=== PATIENT | female | born 2000 | race Caucasian/White ===

== ENCOUNTER 2024-02-08 11:10 | Emergency (ER) | payer OTHER ==
--- NOTE | 2024-02-08 12:10 | ED Physician Documentation ---
History of Present Illness - Stated complaint Stated Complaint: N/V,BATISTA,ABD CRAMPING - Chief complaint Chief Complaint: Abd Pain - Additonal information Additional information: 23-year-old female with history of vertigo, migraines headaches currently 34 weeks presents emergency department for nausea vomiting diarrhea. Patient started experiencing flulike symptoms yesterday today she woke feeling slightly better she took her iron pill went to the bathroom to void and started feeling what she describes as vertigo she says it feels like her other vertigo episodes she has had in the past she tried to lay on her right side for little bit to help with vertigo symptoms and felt a sudden urge for diarrhea. She said that she had nausea vomiting diarrhea for about 5 minutes and was very dizzy with abdominal cramping since then. She also complains of new worsening headache no known recent fevers or chills no dysuria or urinary urgency. PD PAST MEDICAL HISTORY - Past Medical History Past Medical History: Yes Neuro: Headaches, Migraines Other Past Medical History: vertigo - Past Surgical History Past Surgical History: No - Present Medications Home Medications: Ambulatory Orders Medication Instructions Recorded Confirmed Ferrous Sulfate [Feosol] 325 mg PO DAILY 02/08/24 02/08/24 Pnv No.95/Ferrous Fum/Folic AC 1 tab PO DAILY 02/08/24 02/08/24 [ Tablet] - Allergies Allergies/Adverse Reactions: Allergies Allergy/AdvReac Type Severity Reaction Status Date / Time No Known Drug Allergies Allergy Verified 02/08/24 11:30 - Social History Does the pt smoke?: No Smoking Status: Never smoker Does the pt drink ETOH?: No Does the pt have substance abuse?: No - Immunizations Immunizations are current?: Yes - POLST Patient has POLST: No PD ED PE NORMAL - Vitals Vital signs reviewed: Yes - General General: Alert and oriented X 3, No acute distress, Well developed/nourished - HEENT HEENT: Atraumatic, PERRL, EOMI, Moist mucous membranes - Cardiac Cardiac: RRR - Respiratory Respiratory: No respiratory distress, Clear bilaterally - Abdomen Abdomen: Normal bowel sounds, Soft, Non tender, Other (34 wks ) - Back Back: No CVA TTP - Derm Derm: Normal color, No rash - Extremities Extremities: No deformity, No edema - Neuro Neuro: Alert and oriented X 3, 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, No motor deficit, No sensory deficit, Normal speech Eye Opening: Spontaneous Motor: Obeys Commands Verbal: Oriented GCS Score: 15 - Psych Psych: Normal mood, Normal affect Results - Vitals Vitals: Vital Signs - 24 hr 02/08/24 02/08/24 02/08/24 11:25 13:06 14:47 Temperature 36.5 C Heart Rate 72 75 87 Respiratory 16 16 18 Rate Blood Pressure 97/65 113/73 103/67 O2 Saturation 99 100 98 Oxygen O2 Source Room air - Labs Labs: Laboratory Tests 02/08/24 02/08/24 02/08/24 12:36 12:36 12:39 WBC 8.7 RBC 3.47 L Hgb 11.6 L Hct 34.1 L MCV 98.3 MCH 33.4 H MCHC 34.0 RDW 12.8 Plt Count 144 MPV 10.6 Neut # (Auto) 6.6 Lymph # (Auto) 1.6 [place] # (Auto) 0.5 Eos # (Auto) 0.1 Baso # (Auto) 0.0 Absolute Nucleated RBC 0.00 Nucleated RBC % 0.0 Sodium Potassium Chloride Carbon Dioxide Anion Gap BUN Creatinine Estimated GFR (MDRD) Glucose Calcium Magnesium Total Bilirubin AST ALT Alkaline Phosphatase Total Protein Albumin Globulin Albumin/Globulin Ratio Lipase Urine Color YELLOW Urine Clarity CLOUDY Urine pH 7.5 Ur Specific [place] 1.015 Urine Protein NEGATIVE Urine Glucose (UA) NEGATIVE Urine Ketones NEGATIVE Urine Occult Blood NEGATIVE Urine Nitrite NEGATIVE Urine Bilirubin NEGATIVE Urine Urobilinogen 0.2 (NORMAL) Ur Leukocyte Esterase NEGATIVE Urine RBC 0-5 Urine WBC 0-3 Ur Squamous Epith Cells RARE Squamous Amorphous Sediment Moderate Urine Bacteria Moderate H Ur Microscopic Review INDICATED Urine Culture Comments NOT INDICATED Nasal Adenovirus (PCR) NOT DETECTED Nasal B. parapertussis DNA (PCR) NOT DETECTED Nasal Coronavir 229E PCR NOT DETECTED Nasal Coronavir HKU1 PCR NOT DETECTED Nasal Coronavir NL63 PCR NOT DETECTED Nasal Coronavir OC43 PCR NOT DETECTED Nasal Enterovir/Rhinovir PCR NOT DETECTED Nasal Influenza B PCR NOT DETECTED Nasal Influenza A PCR NOT DETECTED Nasal Parainfluen 1 PCR NOT DETECTED Nasal Parainfluen 2 PCR NOT DETECTED Nasal Parainfluen 3 PCR NOT DETECTED Nasal Parainfluen 4 PCR NOT DETECTED Nasal RSV (PCR) NOT DETECTED Nasal B.pertussis DNA PCR NOT DETECTED Nasal C.pneumoniae (PCR) NOT DETECTED Alfonzo Human Metapneumo PCR NOT DETECTED Nasal M.pneumoniae (PCR) NOT DETECTED Nasal SARS-CoV-2 (PCR) NOT DETECTED 02/08/24 12:39 WBC RBC Hgb Hct MCV MCH MCHC RDW Plt Count MPV Neut # (Auto) Lymph # (Auto) [place] # (Auto) Eos # (Auto) Baso # (Auto) Absolute Nucleated RBC Nucleated RBC % Sodium 138 Potassium 3.8 Chloride 106 Carbon Dioxide 26 Anion Gap 6.0 BUN 5 L Creatinine 0.5 L Estimated GFR (MDRD) 153 Glucose 78 Calcium 8.9 Magnesium 1.5 L Total Bilirubin 0.5 AST 17 ALT 12 Alkaline Phosphatase 113 Total Protein 5.9 L Albumin 3.6 Globulin 2.3 Albumin/Globulin Ratio 1.6 Lipase 12 Urine Color Urine Clarity Urine pH Ur Specific [place] Urine Protein Urine Glucose (UA) Urine Ketones Urine Occult Blood Urine Nitrite Urine Bilirubin Urine Urobilinogen Ur Leukocyte Esterase Urine RBC Urine WBC Ur Squamous Epith Cells Amorphous Sediment Urine Bacteria Ur Microscopic Review Urine Culture Comments Nasal Adenovirus (PCR) Nasal B. parapertussis DNA (PCR) Nasal Coronavir 229E PCR Nasal Coronavir HKU1 PCR Nasal Coronavir NL63 PCR Nasal Coronavir OC43 PCR Nasal Enterovir/Rhinovir PCR Nasal Influenza B PCR Nasal Influenza A PCR Nasal Parainfluen 1 PCR Nasal Parainfluen 2 PCR Nasal Parainfluen 3 PCR Nasal Parainfluen 4 PCR Nasal RSV (PCR) Nasal B.pertussis DNA PCR Nasal C.pneumoniae (PCR) [place] Human Metapneumo PCR Nasal M.pneumoniae (PCR) Nasal SARS-CoV-2 (PCR) PD Medical Decision Making - ED course ED course: 23-year-old female presents emergency department for episode of nausea vomiting diarrhea. She also is experiencing abdominal cramps and then is 34 weeks . She was originally supposed to be seen with [facility] but because of critical staffing shortages they asked us to start patient workup here in the emergency department. Labs are complete for further evaluation she shows no leukocytosis, very mild hypomagnesemia at 1.5 she was given 400 mg of magnesium oxide p.o. for replacement. No other electrolyte abnormalities urine is unremarkable as well as respiratory panel. She was given 1 L of IV fluids here in the emergency department and offered Tylenol for headache as well as Zofran for nausea but patient said that she did not want to take any medications due to the fact that she is 34 weeks . Provided education and reassurance that these are safe medications and she declined. At this point in time workup in the emergency department is complete she is being sent to [facility] for further evaluation. I spoke with Dr. Hutchins who is aware that patient will be coming to [facility] unit for further evaluation of monitoring to make sure that patient is not having any contractions and that baby is not in any distress. Patient was transported via wheelchair to OB department. We attempted to get a stool sample to rule out possible norovirus but unfortunately patient did not have any nausea vomiting or diarrhea here in the emergency department. She did report the symptoms significantly improved after 1 L of IV fluids. Departure - Departure Disposition: 01 Home, Self Care Clinical Impression: Nausea vomiting and diarrhea Instructions: ED Diet Vomiting Diarrhea Comments: Please present to OBGYN for ongoing evaluation and monitoring of your baby. You Received 1 L of IV fluids here in the emergency department he did report some alleviation of symptoms. It is important that will be is able to monitor you to make sure that baby is not in any distress. Forms: PCP List Discharge Date/Time: 02/08/24 14:47
[2024-02-08 12:43] LABS: BASOPHILS % (AUTO) 0.3 %; EOSINOPHILS # (AUTO) 0.1 10^3/uL (0.0-0.7); EOSINOPHILS % (AUTO) 0.9 %; HCT - HEMATOCRIT 34.1 % (37.0-47.0); HGB - HEMOGLOBIN 11.6 g/dL (12.0-16.0); LYMPHOCYTES # (AUTO) 1.6 10^3/uL (1.5-3.5); LYMPHOCYTES % (AUTO) 17.8 %; MEAN CORPUSCULAR HEMOGLOBIN 33.4 pg (27.0-31.0); MEAN CORPUSCULAR VOLUME 98.3 fL (81.0-99.0); MEAN PLATELET VOLUME 10.6 fL (7.9-10.8); MONOCYTES # (AUTO) 0.5 10^3/uL (0.0-1.0); MONOCYTES % (AUTO) 5.3 %; NEUTROPHILS # (AUTO) 6.6 10^3/uL (1.5-6.6); NEUTROPHILS % (AUTO) 75.1 %; PLT - PLATELET COUNT 144 10^3/uL (130-450); RED BLOOD COUNT 3.47 10^6/uL (4.20-5.40); RED CELL DISTRIBUTION WIDTH 12.8 % (12.0-15.0); WHITE BLOOD COUNT 8.7 x10^3/uL (4.8-10.8)
[2024-02-08 12:57] LABS: ALBUMIN 3.6 g/dL (3.2-5.5); ALBUMIN/GLOBULIN RATIO 1.6 (1.0-2.2); BILIRUBIN,TOTAL 0.5 mg/dL (0.2-1.0); CALCIUM 8.9 mg/dL (8.5-10.3); CREATININE 0.5 mg/dL (0.6-1.3); MAGNESIUM 1.5 mg/dL (1.7-2.3); POTASSIUM 3.8 mmol/L (3.5-4.5); TOTAL PROTEIN 5.9 g/dL (6.4-8.9)
[2024-02-08 13:18] LABS: BILIRUBIN,URINE NEGATIVE (NEGATIVE); GLUCOSE, URINE (UA) NEGATIVE (NEGATIVE); KETONES,URINE (UA) NEGATIVE (NEGATIVE); LEUKOCYTE ESTERASE, URINE NEGATIVE (NEGATIVE); NITRITE,URINE NEGATIVE (NEGATIVE); OCCULT BLOOD,URINE NEGATIVE (NEGATIVE); PH,URINE 7.5 PH (5.0-7.5); PROTEIN,URINE NEGATIVE (NEGATIVE); UROBILINOGEN,URINE 0.2 (NORMAL) E.U./dL (NORMAL)
[2024-02-08] MEDS: MAGNESIUM OXIDE 400 MG TABLET PO STA (13:21)
[2024-02-08 13:22] LABS: CLARITY,URINE CLOUDY (CLEAR)
[2024-02-08] MEDS: SODIUM CHLORIDE 0.9% 1,000 ML IV ONE (13:22)
[2024-02-08 13:30] LABS: AMORPHOUS SEDIMENT,UR Moderate /LPF; BACTERIA,URINE Moderate /HPF (None Seen); RBC,URINE 0-5 /HPF (0-5); SQUAMOUS EPITHELIAL CELL,UR RARE Squamous (<= Few); WBC,URINE 0-3 /HPF (0-5)
[2024-02-08 14:23] LABS: B. PARAPERTUSSIS- RESP PCR PAN NOT DETECTED; B. PERTUSSIS- RESP PCR PANEL NOT DETECTED; C. PNEUMONIAE- RESP PCR PANEL NOT DETECTED; CORONAVIRUS 229E-RESP PCR NOT DETECTED; CORONAVIRUS HKU1-RESP PCR NOT DETECTED; CORONAVIRUS NL63-RESP PCR NOT DETECTED; CORONAVIRUS OC43-RESP PCR NOT DETECTED; HUMAN METAPNEUMOVIRUS NOT DETECTED; INFLUENZA A- RESP PCR PANEL NOT DETECTED; INFLUENZA B - RESP PCR PANEL NOT DETECTED; M. PNEUMONIAE- RESP PCR PANEL NOT DETECTED; PARAINFLUENZA VIRUS 1 NOT DETECTED; PARAINFLUENZA VIRUS 2 NOT DETECTED; PARAINFLUENZA VIRUS 3 NOT DETECTED; PARAINFLUENZA VIRUS 4 NOT DETECTED; RHINOVIRUS/ENTEROVIRUS NOT DETECTED; RSV- RESP PCR PANEL NOT DETECTED; SARS-CoV-2 -RESP PCR PANEL NOT DETECTED
[2024-02-08 14:54] VITALS: BP 103/67; O2SAT 98
== END 2024-02-08 14:47 | disposition home or self-care (01) ==
LOC: ED 11:10
DX: O26.893 Other specified pregnancy related conditions, third trimester (principal); R11.2 Nausea with vomiting, unspecified; R19.7 Diarrhea, unspecified; Z3A.34 34 weeks gestation of pregnancy
CPT/HCPCS: 36415; 80053; 81001; 83690; 83735; 85025; 87633; 96360; 99283; 99284; A9270; 81003; 87086; 87798

== ENCOUNTER 2024-02-23 13:19 | Outpatient (CLI) | payer OTHER ==
[2024-02-23 13:28] LABS: HGB - HEMOGLOBIN 12.2 g/dL (12.0-16.0); MEAN CORPUSCULAR HEMOGLOBIN 33.6 pg (27.0-31.0); MEAN CORPUSCULAR HGB CONC 33.9 g/dL (32.0-36.0); MEAN CORPUSCULAR VOLUME 99.2 fL (81.0-99.0); MEAN PLATELET VOLUME 10.6 fL (7.9-10.8); RED BLOOD COUNT 3.63 10^6/uL (4.20-5.40); RED CELL DISTRIBUTION WIDTH 12.9 % (12.0-15.0); WHITE BLOOD COUNT 8.8 x10^3/uL (4.8-10.8)
== END 2024-02-23 13:20 | disposition home or self-care (01) ==
LOC: LAB 13:19
PROVIDERS: ATTEND Obstetrics & Gynecology
DX: O99.013 Anemia complicating pregnancy, third trimester (principal); Z36.85 Encounter for antenatal screening for Streptococcus B
CPT/HCPCS: 36415; 85027; 87797

== ENCOUNTER 2024-03-21 08:27 | Inpatient (IN) | payer OTHER ==
[2024-03-21] MEDS ORDERED: CALCIUM CARBONATE CHEW 500 MG TABLET PO PRN (09:40)
[2024-03-21] MEDS ORDERED: miSOPROStoL 200 MCG TABLET PR PRN (09:40)
[2024-03-21] MEDS ORDERED: OXYTOCIN 10 UNIT/ML VIAL IM PRN (09:40)
[2024-03-21] MEDS ORDERED: miSOPROStoL 200 MCG TABLET BC PRN (09:40)
[2024-03-21] MEDS ORDERED: LACTATED RINGERS 1,000 ML IV PRN (09:40)
[2024-03-21] MEDS ORDERED: TERBUTALINE 1 MG/ML VIAL SUBQ PRN (09:40)
[2024-03-21] MEDS ORDERED: SODIUM CHLORIDE FLUSH 0.9% 10 ML SYRINGE IVP PRN (09:40)
[2024-03-21] MEDS ORDERED: ONDANSETRON ODT 4 MG TABLET PO PRN (09:40)
[2024-03-21] MEDS ORDERED: TRANEXAMIC ACID IN NACL 1,000 MG/100 ML BAG IV PRN (09:40)
[2024-03-21] MEDS ORDERED: METHYLERGONOVINE 0.2 MG/ML VIAL IM PRN (09:40)
[2024-03-21] MEDS ORDERED: CARBOPROST TROMETHAMINE 250 MCG/ML VIAL IM PRN (09:40)
[2024-03-21] MEDS ORDERED: SODIUM CHLORIDE FLUSH 0.9% 10 ML SYRINGE IVP SCH (10:00)
[2024-03-21 10:48] LABS: BASOPHILS % (AUTO) 0.4 %; EOSINOPHILS % (AUTO) 0.3 %; HCT - HEMATOCRIT 39.2 % (37.0-47.0); HGB - HEMOGLOBIN 13.6 g/dL (12.0-16.0); LYMPHOCYTES # (AUTO) 1.4 10^3/uL (1.5-3.5); LYMPHOCYTES % (AUTO) 12.6 %; MEAN CORPUSCULAR HEMOGLOBIN 33.1 pg (27.0-31.0); MEAN CORPUSCULAR HGB CONC 34.7 g/dL (32.0-36.0); MEAN CORPUSCULAR VOLUME 95.4 fL (81.0-99.0); MEAN PLATELET VOLUME 11.8 fL (7.9-10.8); MONOCYTES # (AUTO) 0.7 10^3/uL (0.0-1.0); NEUTROPHILS # (AUTO) 9.1 10^3/uL (1.5-6.6); NEUTROPHILS % (AUTO) 80.4 %; PLT - PLATELET COUNT 156 10^3/uL (130-450); RED BLOOD COUNT 4.11 10^6/uL (4.20-5.40); RED CELL DISTRIBUTION WIDTH 11.9 % (12.0-15.0); WHITE BLOOD COUNT 11.3 x10^3/uL (4.8-10.8)
--- NOTE | 2024-03-21 10:55 | PHARMACY PROGRESS NOTE ---
- Best Possible Medication History Admit Date and Time: 03/21/24 0940 Processed by: Pharmacy Medications reviewed in ED?: No Medication History completed: Yes Patient Interview: Pt unable to participate Secondary Source(s): Physician records, Insurance records As the person ultimately responsible for medication therapy, providers are able to order a medication from an existing home medication list in [facility] via the "Reconcile Routine" prior to Confirmation of that medication by aviation support equipment repairer. Such practice is discouraged except when the physician, in their clinical judgment, deems that a medical need exists for a medication without regard to previous use.
[2024-03-21 11:04] LABS: ALBUMIN 3.5 g/dL (3.2-5.5); ALBUMIN/GLOBULIN RATIO 1.4 (1.0-2.2); BILIRUBIN,TOTAL 0.5 mg/dL (0.2-1.0); CALCIUM 8.9 mg/dL (8.5-10.3); CREATININE 0.6 mg/dL (0.6-1.3)
--- NOTE | 2024-03-21 12:29 | HISTORY & PHYSICAL EXAMINATION ---
Admit History - Visit Reason Visit Reason: Membranes rupture, Other - Smoking Status: Never smoker - Other Maternal History Other Maternal History: HPI: Aniya is a 23 at 40w3d who presents with ruptured membranes and early labor. She reports large gush of fluid this morning at around 0520 after waking. Reports contractions starting after that. flowsheet (copied from record in [facility]): 23 yo transfer at 31 weeks. LMP: 06/12/2023 [facility] by LMP:03/18/2024 Initial U/S: 10 weeks FINAL DEVAN: 03/18/24 to [facility]. Aniya was born and raised in [place]. on [place] since mid December 2023. with son Subhash. Anemia 31% 12/21/23 -Taking oral iron. Declined IV iron supplementation. recheck 02/22 -> Hgb 12.2 varicella not immune only indication for LD-ASA was primigravida. not given to her. Vertigo -Will monitor symptoms. Worse when taking iron. Usually happens in the morning after eating. Never happens in the afternoon. Pre- Weight: 131 BMI: 23.3 Blood type O+ Antibody negative CBC:H/H 12.5/35.7 plt 181 RUB:Imm VZV: NON imm HBsAg Negative HepC Negative RPR/AB-EIA: Negative HIV: Negative PAP: 2020, no abnml GC/CT: Negative HSV: Genetic testing: NIPT negative, boy FAS:11/17/23 WNL in [place] Placenta: Anterior no previa Cord: TORY:15.7cm EFW:544g 60%ile 50gm OGCT: 94 TDAP: 12/29/23 given Breast Pump: prescription given 3rd trimester H/H 10.8/31.2 PLT GBS: 02/23/24 Negative Delivery plan: no epidural. 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 Family Hx: non contributory Allergies: NKDA Meds: PNV PE: Gen: NAD Chest: non labored respirations Abd: gravid, non tender, EFW 3600g SVE: 4cm in triage per RN, grossly ruptured with + nitrazine Bedside US: cephalic presentation confirmed monitoring: FHTs: 140s bpm baseline, + accel, - decel , mod variability [place]: currently not picking up well Cat 1 Labs: reviewed A/P: Aniya is a 23 at 40w3d who presents with: - SROM, early labor - GBS neg - Rh + - Rubella immune - Varicella non immune - Expectant management for now. Repeat SVE in 4-6 hrs or sooner PRN. - Pain management per patient request. Declines epidural at this time. Brii Skinner MD - HPI Current EDU 03/18/24 Gestation 40 Weeks and 3 Days 2 Vital Signs Temperature 97.9 F 03/21/24 08:35 Heart Rate 85 03/21/24 08:35 Respiratory Rate 16 03/21/24 08:35 Blood Pressure 109/82 H 03/21/24 08:35 Temperature 97.9 F 03/21/24 08:36 Heart Rate 85 03/21/24 08:36 Respiratory Rate 16 03/21/24 08:36 Blood Pressure 109/82 H 03/21/24 08:36 O2 Saturation 100 03/21/24 08:36 If not protocol: Oxygen Flow, liters/minute Meds/Allgy - Home Medications Home Medications: Ambulatory Orders Medication Instructions Recorded Confirmed Ferrous Sulfate [Feosol] 325 mg PO DAILY 02/08/24 03/21/24 Pnv No.95/Ferrous Fum/Folic AC 1 tab PO DAILY 02/08/24 03/21/24 [ Tablet] - Allergies Allergies/Adverse Reactions: Allergies Allergy/AdvReac Type Severity Reaction Status Date / Time No Known Drug Allergies Allergy Verified 02/08/24 11:30 Physical - Abdominal Exam Vital Signs: Temp Pulse Resp BP Pulse Ox O2 Flow Rate 97.9 F 85 16 109/82 H 100 03/21/24 08:36 03/21/24 08:36 03/21/24 08:36 03/21/24 08:36 03/21/24 08:36 Plan for Labor - Plan For Labor I expect patient to be DC'd or transferred within 96 hours.: Yes
[2024-03-21] MEDS: fentaNYL 100 MCG/2 ML VIAL IVP PRN (13:51)
[2024-03-21] MEDS: ONDANSETRON 4 MG/2 ML VIAL IVP PRN (14:01)
[2024-03-21] MEDS: LACTATED RINGERS 1,000 ML IV SCH (14:30)
[2024-03-21] MEDS: OXYTOCIN/SODIUM CHLORIDE 500 ML IV PRN (15:00)
[2024-03-21] MEDS: lidocaine 1% 20 ML MDV ID PRN (15:16)
[2024-03-21] MEDS ORDERED: WITCH HAZEL/GLYCERIN 1 PAD TOP PRN (15:39)
[2024-03-21] MEDS ORDERED: oxyCODONE 5 MG TABLET PO PRN (15:39)
[2024-03-21] MEDS ORDERED: HYDROCORTISONE 1% CREAM 28 GM TUBE PR PRN (15:39)
[2024-03-21] MEDS ORDERED: VARICELLA VACCINE LIVE/PF 1,350 UNIT/0.5 ML VIAL SUBQ ONE (15:39)
[2024-03-21] MEDS: ACETAMINOPHEN 500 MG TABLET PO PRN (16:23)
[2024-03-21] MEDS: IBUPROFEN 800 MG TABLET PO SCH ×2 (16:25→21:00)
--- NOTE | 2024-03-21 19:42 | DELIVERY NOTE ---
Delivery Note - Infant Delivery Method Infant Delivery Method: positive: Spontaneous vaginal delivery - Presentation Presentation: positive: Vertex - Nuchal Cord Nuchal Cord: positive: Present - Amniotic Fluid Description Amniotic Fluid Description: positive: Clear - Laceration Laceration: positive: 2nd degree, Labial - Suture Suture Type: positive: Vicryl Suture Size: positive: 2-0 - Delivery Outcome Delivery Outcome: positive: Livebirth - [place] : positive: Placed in direct skin contact with mother sex: positive: Male - Placenta Placenta: positive: Intact - Estimated Blood Loss Estimated Blood Loss (in cc): 300 - Post Delivery Events Post Delivery Events: positive: No post delivery events - Delivery Comments (Free Text/Narrative) Delivery Comments (Free Text/Narrative): I was notified that patient was complete and ready to start pushing. She was complete at 1411. I arrived at bedside and began pushing with patient at 1423. She pushed with excellent effort and descent. Deep decelerations noted with the last pushing attempts, however, at this point she was and I felt that she would delivery quickly without assistance. The head and then anterior shoulder delivered easily with maternal effort and gentle downward pressure followed by the remainder of the body. The was placed on the mother's abdomen and infant was stimulated. Infant was not vigorous with stimulation therefore the cord was cut and clamped so infant could be taken to the warmer. Cord blood was collected and a segment obtained for cord gases. Pitocin was started. The placenta was delivered intact. Good uterine tone noted. The 2nd degree perineal laceration was repaired with 2-0 Vicryl. The bilateral labial lacerations were hemostatic and not repaired. Perineal hemostasis noted at completion of procedure. Brii Skinner MD
[2024-03-22 07:54] VITALS: O2SAT 100
[2024-03-22] MEDS: DOCUSATE SODIUM 100 MG CAPSULE PO SCH (08:29)
--- NOTE | 2024-03-22 12:58 | DISCHARGE SUMMARY ---
Discharge Summary Admit Date: 03/21/24 Discharge Date: 03/22/24 Discharging Provider: Brii Skinner MD Code Status: Attempt Resuscitation Condition at Discharge: Good Discharge Disposition: 01 Home, Self Care - HOSPITAL COURSE Hospital Course: Admission Diagnosis: - SIUP at 40w3d - SROM, labor - GBS neg - Rh + - Rubella immune - Varicella nonimmune Discharge Diagnosis: - Same, s/p Procedures: , repair of 2nd degree perineal laceration Hospital Course: Aniya is a 23 yo who presented at 40w3d with SROM in early labor. She progressed in labor on her own mechanism and had a with an EBL of 300cc. 2nd degree perineal laceration repaired, bilateral labial lacerations noted but hemostatic and not repaired. course uncomplicated. Condition on Discharge: SUBJECTIVE: day 1 The patient feels well. Pain is well controlled with current medications. The baby is doing well. Baby is feeding via She is ambulating well, tolerating normal diet, urinating without difficulty. Lochia is reported as light. She would like to go home today. OBJECTIVE: Vital signs reviewed GENERAL: NAD CHEST: non labored respirations ABD: soft, non tender, fundus firm EXT: no lower extremity edema PLAN: Plan for discharge home with follow up in clinic in 1 week, OK for virtual visit. Reviewed home care instructions and medications. Patient counseled regarding signs and symptoms of infection, excessive bleeding, vaginal rest and activity restrictions. Contraceptive plans to be formalized at visit, und ecided at this time. - ALLERGIES Allergies/Adverse Reactions: Allergies Allergy/AdvReac Type Severity Reaction Status Date / Time No Known Drug Allergies Allergy Verified 02/08/24 11:30 - MEDICATIONS Home Medications: Ambulatory Orders Medication Instructions Recorded Confirmed Pnv No.95/Ferrous Fum/Folic AC 1 tab PO DAILY 02/08/24 03/21/24 [ Tablet] - LABS Result Diagrams: 03/21/24 09:50 03/21/24 09:50
[2024-03-22 13:08] VITALS: BP 107/68
--- NOTE | 2024-03-22 18:47 | Labor Flowsheet ---
Labor Flowsheet Datetime Report Generated by CPN: 03/22/2024 18:46 Datetime: 03/22/2024 12:31 VITAL SIGNS NBP Sys/[place]/Mean (mmHg): 107 : 68 : 78 Pulse: 81 LaborFlag: Labor Datetime: 03/22/2024 04:08 SpO2 (%): 97 Datetime: 03/21/2024 17:05 Membranes Ruptured Date/Time: 03/21/2024 05:20 Membranes Rupture Method: Spontaneous Amniotic Fluid Color: Clear Datetime: 03/21/2024 15:01 Medication Comments: start post pitocin Datetime: 03/21/2024 14:57 UTERINE ACTIVITY Monitor Mode: External Frequency (min): q3 Quality: Strong Duration (sec): 60+ Pattern: Normal: <= 5 Contractions in 10 Minutes Resting Tone (Palpate): Relaxed Comments: FHR indetermiante while pushing. RN hand holding US in place. MD at bedside continually a ssessing FHR tracing. Datetime: 03/21/2024 14:30 ASSESSMENT A Monitor Mode: External US FHR Baseline Changes: Tachycardia Decelerations: Variable Datetime: 03/21/2024 14:27 STAGE 2 Pushing: Coached on Pushing; Urge to Push Pushing Position: Pushing with Contractions Datetime: 03/21/2024 14:20 Monitor Interventions for UA: [place] Adjusted Monitor Interventions for FHR: Ultrasound Adjusted FHR Baseline Rate : 145 Variability: Moderate 6-25 bpm Accelerations: 15X15 Category: Category II Stage 2 Comments: start of pushing Datetime: 03/21/2024 14:18 Vaginal Exam Comments: provider bedside Datetime: 03/21/2024 13:51 MEDICATIONS Analgesics/Sedatives: Fentanyl (mcg) @ 50 Datetime: 03/21/2024 13:39 VAGINAL EXAM Dilatation (cm): 6.0 Effacement (%): 100 Station: 0 Exam by: Komal Saida, RN Vaginal Bleeding: Normal Show Cervix, Consistency: Soft Cervix, Position: Anterior Datetime: 03/21/2024 13:01 Temperature (C): 36.8 Datetime: 03/21/2024 13:00 Patient Care Comments: Pt. in jacuzzi Datetime: 03/21/2024 12:59 Contraction Comments: breathing and focused during ctx Datetime: 03/21/2024 12:30 COMMUNICATION Communication: Call/Page Placed to Provider Datetime: 03/21/2024 12:20 Stage of : Labor PAIN Pain Scale: 6 Pain Presence: Intermittent Pain Type: Cramping Pain Location: Abdomen Pain Coping: Breathing Through Contractions Pain Assessment Comments: Patient started with nitrous oxide Notification Reason: Status Update Communication Comments: MD on unit and update at patient request for use of nitrous oxide; permissi on given at this time. Datetime: 03/21/2024 11:11 Patient Position/Activity: Birthing Ball Datetime: 03/21/2024 10:57 I/O Interventions: Up to BR Datetime: 03/21/2024 10:30 Oxygen Method: Room Air Datetime: 03/21/2024 09:50 PATIENT CARE IV/Blood Work: IV Started
== END 2024-03-22 18:44 | disposition home or self-care (01) | DRG 807 ==
LOC: WFO 08:27 → FBP 08:29 → WFO 09:39 → FBP 09:40
PROVIDERS: ADMIT Obstetrics & Gynecology; ATTEND Obstetrics & Gynecology
PROC: 10E0XZZ Delivery of Products of Conception, External Approach (ICD-10-PCS; principal; 2024-03-21)
PROC: 0KQM0ZZ Repair Perineum Muscle, Open Approach (ICD-10-PCS; 2024-03-21)
DX: O70.1 Second degree perineal laceration during delivery (principal); Z37.0 Single live birth; Z3A.40 40 weeks gestation of pregnancy; O48.0 Post-term pregnancy; O76 Abnormality in fetal heart rate and rhythm complicating labor and delivery; O99.02 Anemia complicating childbirth; Z23 Encounter for immunization
CPT/HCPCS: 59409; 80053; 85025; 86850; 86900; 86901; 90716; 99215; A9270; J7120; 84112